=== PATIENT | female | born 1995 | race Two or more races ===

== ENCOUNTER 2017-08-27 12:25 | Emergency (ER) | payer MEDICAID, OTHER ==
[~2017-08-27] VITALS: Ht 157.5 cm; Wt 72.6 kg
[2017-08-27 12:25] VITALS: BP 142/90
[~2017-08-27 12:25] MED LIST: [UNRECOGNIZED DRUG - CODE] PO
== END 2017-08-27 13:48 | disposition home or self-care (01) ==
LOC: ER 12:27
DX: H65.91 Unspecified nonsuppurative otitis media, right ear (principal)
CPT/HCPCS: 99283; A4606; Z7610

== ENCOUNTER 2024-03-05 08:08 | Emergency (ER) | payer MEDICAID, OTHER ==
[~2024-03-05] VITALS: Ht 157.5 cm; Wt 89.8 kg
[2024-03-05] MEDS ORDERED: ALBU18HF2 INH (09:09)
[2024-03-05 09:56] VITALS: BP 123/70; TEMP 98.2; O2SAT 94
== END 2024-03-05 09:57 | disposition home or self-care (01) ==
LOC: ER 08:11
DX: J06.9 Acute upper respiratory infection, unspecified (principal)
CPT/HCPCS: 71045-TC

== ENCOUNTER 2025-06-24 14:04 | Emergency (ER) | payer MEDICAID, OTHER ==
[~2025-06-24] VITALS: Ht 157.5 cm; Wt 81.6 kg
[~2025-06-24 14:04] MED LIST changes: +ALBU18HF2 INH
[2025-06-24 14:13] VITALS: BP 103/66; TEMP 98.2
[2025-06-24] MEDS ORDERED: IBUPROFEN 600 MG TABLET ONE (14:31)
[2025-06-24] MEDS ORDERED: ACETAMINOPHEN ES 500 MG TABLET ONE (14:31)
[2025-06-24] MEDS: ACETAMINOPHEN ES 500 MG TABLET PO ONE (14:34)
[2025-06-24] MEDS: IBUPROFEN 600 MG TABLET PO ONE (14:34)
[2025-06-24] MEDS ORDERED: IBUP-1490 PO (15:32)
[2025-06-24 15:53] VITALS: O2SAT 99
== END 2025-06-24 15:53 | disposition home or self-care (01) ==
LOC: ER 14:12
DX: S93.492A Sprain of other ligament of left ankle, initial encounter (principal); W01.0XXA Fall on same level from slipping, tripping and stumbling without subsequent striking against object, initial encounter; Y93.01 Activity, walking, marching and hiking; Y92.89 Other specified places as the place of occurrence of the external cause; Y99.8 Other external cause status
CPT/HCPCS: 73564-TC; 73610-TC